=== PATIENT | male | born 1970 | race Caucasian/White ===

== ENCOUNTER 2018-10-01 10:50 | Emergency (ER) | payer OTHER, SELFPAY ==
[2018-10-01 10:53] VITALS: BP 128/69; PULSE 82; RESP 18; TEMP 36.7; O2SAT 97; O2SAT 98
[2018-10-01] MEDS: fentaNYL 100 MCG/2 ML VIAL ×2 (10:57→11:03)
[2018-10-01] MEDS: Omnipaque 350 MG/ML 100 ML BTL IJ (11:12)
[2018-10-01] MEDS: Normal Saline Flush 10 ML SYR IVP (11:14)
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
[2018-10-01] MEDS: MORPHine 10 MG/ML VIAL 4 MG IVP ×2 (11:40→12:20)
[2018-10-01 11:43] VITALS: BP 120/92; PULSE 66; PULSE 71; RESP 17; O2SAT 96
[2018-10-01] MEDS: Normal Saline 1,000 ML 1000 ML IV (11:45)
[2018-10-01 11:46] VITALS: BP 124/75; PULSE 67; PULSE 70; RESP 9; O2SAT 97
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
[2018-10-01 11:57] LABS: Abs Immature Grans 0.03 k/cumm (0.0-0.09); Absolute Basophil Count 0.06 k/cumm (0.0-0.2); Absolute Eosinophil Count 0.15 k/cumm (0.0-0.7); Absolute Lymphocyte Count 1.82 k/cumm (1.2-3.4); Absolute Monocyte Count 0.78 k/cumm (0.11-0.7); Absolute Neutrophil Count 4.41 k/cumm (1.2-6.7); Basophils % 0.8; Eosinophils % 2.1; HCT 41.3 % (40.0-50.0); HGB 14.4 g/dL (13.5-17.5); Immature Grans % 0.4; Lymphocytes % 25.1; Mean Corp. HGB Concentration 34.9 g/dL (32.0-36.0); Mean Corpuscular Hemoglobin 31.2 pg (27.0-33.0); Mean Corpuscular Volume 89.6 fL (80-95); Mean Platelet Volume 9.6 fL (8.0-11.0); Monocytes % 10.8; Neutrophils % 60.8; Platelet Count 254 x1000/uL (130-400); RBC 4.61 m/cumm (4.50-6.00); RBC Distribution Width 13.2 % (11.8-14.1); White Blood Cell Count 7.25 k/cumm (4.4-10.8)
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
[2018-10-01 12:10] VITALS: BP 120/83; PULSE 63; PULSE 70; RESP 23; O2SAT 96
[2018-10-01 12:11] LABS: ALT 21 U/L (12-78); AST 11 U/L (15-37); Albumin 3.3 g/dL (3.4-5.0); Alkaline Phosphatase 65 U/L (46-116); Anion Gap 7.6 mmol/L (3-11); BUN 13 mg/dL (7-18); Bilirubin, Total 0.2 mg/dL (0.2-1.0); CO2 27.4 mmol/L (21.0-32.0); CREATININE 1.12 mg/dL (0.70-1.30); Chloride 103 mmol/L (98-107); Glucose 90 mg/dL (70-100); Lipase 113 U/L (73-393); Sodium 138 mmol/L (136-145); Total Protein 6.1 g/dL (6.4-8.2)
[2018-10-01 12:18] LABS: Calcium 8.7 mg/dL (8.5-10.1)
== END 2018-10-01 12:26 | disposition short-term general hospital (02) ==
PROVIDERS: Emergency Provider Student in an Organized Health Care Education/Training Program
DX: S32.492A Other specified fracture of left acetabulum, initial encounter for closed fracture (principal); S32.19XA Other fracture of sacrum, initial encounter for closed fracture; S32.592A Other specified fracture of left pubis, initial encounter for closed fracture; R91.8 Other nonspecific abnormal finding of lung field; V28.0XXA Motorcycle driver injured in noncollision transport accident in nontraffic accident, initial encounter
CPT/HCPCS: 36415; 74177; 80053; 83690; 86850; 86900; 86901; 90471; 96361; 96374; 96376; 99253; 99285; 70450; 71260; 72125; 85025; 99284; J2270; J3010; J3490

== ENCOUNTER 2019-05-05 17:27 | Emergency (ER) | payer SELFPAY ==
[2019-05-05 17:32] VITALS: BP 116/80; PULSE 90; RESP 16; TEMP 36.7; O2SAT 98
--- NOTE | 2019-05-05 17:45 | ED.GENADUL_ITS ---
Discharge Plan Disposition Patient Disposition: HOME Condition: Improving Discharge Details Chief Complaint: RespSymp Clinical Impression: Acute bronchitis with bronchospasm Primary Care Provider: None,None ED Provider: Abilio Hahn Home Meds and New Rx's Prescriptions: New doxycycline hyclate 100 mg capsule 100 mg PO BID 10 Days Qty: 19 RF: 0 prednisone 20 mg tablet 40 mg PO DAILY 5 Days Qty: 10 RF: 0 No Action Daytime and Nighttime Cold 2-5-10-325 mg Tablets, Sequential PO RF: 0 Robitussin Cough and Cold CF 2.5-5-50 mg/5 mL Liquid PRNRF: 0 Discharge Instructions Instructions: Acute Bronchitis (ED) Additional Instructions: Continue efforts to decrease tobacco use with a short-term goal to cut down to 1/2 pack/day. May use albuterol inhaler, with spacer, as needed during times of illness. Return or see regular doctor if you feel you are needing to use the inhaler greater than every 4 hours. Take antibiotics as prescribed, your next dose will be tomorrow morning. Take prednisone as prescribed, next dose tomorrow. Return for worsening discomfort, difficulty breathing, development persistent high fever, or any other acute concern Medical Decision Making 48-year-old male smoker with 2-1/2 weeks of URI symptoms including cough, congestion, production of sputum. He states that he has had coughing fits that resulted in posttussive emesis. He denies chest pain. He is not had chills or rigors. He arrives with normal vital signs. His exam is notable for diminished breath sounds bilaterally. Discussed with him that I feel he has bronchitis with mild bronchospasm. He declines chest x-ray. We will treat with a burst of steroid, doxycycline to cover atypical microorganisms, as well as an inhaler to be used as needed during times of illness. He continues efforts to decrease smoking. I discussed with him home care as well as follow-up and indications for return to the ER. HPI General Mode of arrival: ambulatory . Date/Time Provider Initiated Documentation: 05/05/19 17:27 . Limitations to Documentation: no limitations . Information obtained by: patient . History of Present Illness 48 year old M presents to the emergency department with the chief complaint of Cough, congestion, posttussive emesis last night, described as moderate, Quality is described as dull and constant, and is localized to the neck and chest. Patient reports no radiation. and it has been intermittent. No relieving factors improve symptom(s), No exacerbating factors reported . Patient notes cough; denies chest pain, diaphoresis, shortness of breath and syncope. Patient did receive the following treatments prior to arrival, other (Mucinex and Robitussin) Related Data Home Medications Medication Instructions Recorded Confirmed [id number]-acetaminophen tab PO 05/05/19 [Daytime and Nighttime Cold] doxycycline hyclate 100 mg PO BID 10 Days #19 cap 05/05/19 [id number] ml PRN 05/05/19 [Robitussin Cough and Cold CF] prednisone 40 mg PO DAILY 5 Days #10 tab 05/05/19 Previous Rx's Medication Instructions Recorded doxycycline hyclate 100 mg PO BID 10 Days #19 cap 05/05/19 prednisone 40 mg PO DAILY 5 Days #10 tab 05/05/19 Allergies Allergy/AdvReac Type Severity Reaction Status Date / Time No Known Allergies Allergy Unverified 10/01/18 11:00 General Stated Complaint: RespSymp ALBERTO: 4 Review of Systems Narrative: Denies chest pain, no known sick contacts. States that he has had some production of sputum. Sick systems reviewed and otherwise negative [facility] Medical History Asthma (Chronic) Social History Smoking/Tobacco Use Status: Current every day Tobacco Type: cigarettes Alcohol Intake: current Alcohol Intake frequency: holidays/special occasions only Drug use: Never Substance use type: does not use Do you feel safe in your relationship?: Yes Exam Narrative Exam Narrative: GEN: awake, alert, oriented 3. Pleasant, well groomed, interactive. HEAD: Normocephalic, atraumatic ENT: Mucous membranes moist, oropharynx erythematous without swelling or exudate, External ear exam unremarkable EYES: PERRL, EOMI NECK: Full ROM, no MAUREEN, no menigismus CHEST/RESP: Nontender, clear to auscultation bilateral but diminished, no wheeze/rhonchi/rales CARDIOVASCULAR: RRR, no murmur, rub liang. 2+ Rad pulse bilateral ABDOMEN: Soft, nontender, no mass. +Bowel sounds EXT: Full ROM, no edema, no rash Neuro: Grossly normal neurologic exam, conversant, interactive. Psych: Speech fluent, thoughts congruent, affect normal Course Vital Signs Vital signs: Vital Signs Temperature 36.7 C 05/05/19 17:32 Pulse 90 05/05/19 17:32 Respiratory Rate 16 05/05/19 17:32 Blood Pressure 116/80 05/05/19 17:32 Pulse Oximetry 98 05/05/19 17:32 Temperature 36.7 C 05/05/19 17:32 Pulse 90 05/05/19 17:32 Respiratory Rate 16 05/05/19 17:32 Respiratory Effort 05/05/19 17:38 Blood Pressure 116/80 05/05/19 17:32 Blood Pressure Position Sitting 05/05/19 17:32 Pulse Oximetry 98 05/05/19 17:32 Oxygen Delivery Method Room Air 05/05/19 17:32 Oxygen Flow Rate 0 05/05/19 17:32
[2019-05-05] MEDS: Doxycycline Hyclate 100 MG CAP PO (17:54)
[2019-05-05] MEDS: Albuterol HFA 8 GM 60 PUFF INH IH (17:54)
[2019-05-05] MEDS: predniSONE 20 MG TAB 60 MG PO (17:54)
== END 2019-05-05 17:54 | disposition home or self-care (01) ==
PROVIDERS: Emergency Provider Emergency Medicine
DX: J20.9 Acute bronchitis, unspecified (principal)
CPT/HCPCS: 99283; J7512

== ENCOUNTER 2022-01-13 13:09 | Emergency (ER) | payer SELFPAY ==
[2022-01-13] VITALS (31 sets, daily range): BP systolic 90–103; BP diastolic 46–65; PULSE 78–98; RESP 14–30; TEMP 37.7–38.7; O2SAT 90–96
[2022-01-13 14:21] LABS: Source Nasal/Nares
--- NOTE | 2022-01-13 14:34 | ED.GENADUL_ITS ---
Discharge Plan Disposition Patient Disposition: STILL A PATIENT Condition: Stable Discharge Details Chief Complaint: GenMedical Clinical Impression: COVID Primary Care Provider: None,None ED Provider: Nic Petersen Home Meds and New Rx's Prescriptions: No Action No Known Home Meds Medical Decision Making 51-year-old gentleman, past sickle history of asthma, smoker, presenting for flulike symptoms over the past 24 hours. Patient was swabbed for COVID in triage and is COVID-positive. He was subsequently placed into room 7. Plan is to obtain IV access, give IV fluid, Toradol, obtain routine screening laboratory values and a chest x-ray. Patient makes it very clear that he will not be admitted to our facility as he needs to get home. I do believe that he is likely a candidate for Paxlovid, no recent labs for comparison, will check renal function before giving the medication. Medical Records Medical records reviewed: Yes I reviewed the patient's medical records. Lab Data Lab results reviewed: Yes I reviewed the patient's lab results. Labs: Laboratory Tests Range/Units 01/13/22 13:30 COVID-19 Source Nasal/Nares SARS-CoV-2 (PCR) (Negative) POSITIVE A* HPI General Mode of arrival: ambulatory . Date/Time Provider Initiated Documentation: 01/13/22 13:33 . Limitations to Documentation: no limitations . Information obtained by: patient . HPI Narrative: This is a 61-year-old gentleman, past sickle history of asthma, smoker, presenting to the ER reporting 24-hour history of cough, fatigue, body aches, subjective fever. He reports that he received a single vaccine for COVID. He has not taken any medication prior to arrival. He denies any vomiting, diarrhea, pain or swelling his extremities. Related Data Home Medications Medication Instructions Recorded Confirmed Unknown [No Known Home Meds] 01/13/22 01/13/22 Allergies Allergy/AdvReac Type Severity Reaction Status Date / Time No Known Allergies Allergy Unverified 01/13/22 13:23 General Stated Complaint: GenMedical ALBERTO: 3 Review of Systems Constitutional Constitutional: Reports chills, Reports fever(s) (Subjective) and Reports headache(s) ENT Ears, Nose, Mouth, and Throat: Reports headache(s), Denies neck pain and Reports sore throat Cardiovascular Cardiovascular: Reports chest pain (when coughing) and Reports dyspnea Respiratory Respiratory: Reports cough and Reports dyspnea Gastrointestinal Gastrointestinal: Denies abdominal pain, Denies diarrhea and Denies vomiting Musculoskeletal Musculoskeletal: Reports myalgias and Denies neck pain Integumentary/Breasts Skin/Breast: Denies rash Neurologic Neurologic: Reports headache(s) PFSH All Active Problems (Updated 01/13/22 @ 15:39 by REKHA Abbasi) COVID (Acute) Closed fracture of left acetabulum (Acute) Medical History (Updated 01/13/22 @ 15:39 by REKHA Abbasi) Asthma Social History Smoking/Tobacco Use Status: Current every day Tobacco Type: cigarettes Smoking risk assessment performed?: Yes Alcohol Intake: current Alcohol Intake frequency: holidays/special occasions only Drug use: Never Substance use type: does not use Do you feel safe at home: Yes Do you feel safe in your relationship?: Yes Exam Const General: cooperative and no acute distress Orientation: alert and awake HENNC Head: normal to inspection, normocephalic and atraumatic Face and sinus: normal facial exam Mouth: moist mucous membranes abnormal (Slightly dry) Eyes Conjunctivae: conjunctivae normal Neck Neck: normal visual inspection, full ROM, no meningeal signs, trachea midline and supple Resp Effort & Inspection: normal respiratory effort, able to speak in complete sentences and cough Quality of cough: dry Auscultation: diminished lung sounds bilaterally in the lower lung stallings Cardio Rate: regular rate Rhythm: regular rhythm GI Palpation: soft and nontender Back/Spine/Pelvis Back: No back tenderness Skin General skin exam: no rashes or lesions noted Neuro General: patient alert, patient awake, moves all extremities and no focal motor deficits Cognition: normal cognition Speech: speech normal Gait: normal gait Sensory Exam: no sensory deficits noted Extrem General: normal to inspection, full ROM, capillary refill normal, no pedal edema and no calf tenderness Psych Appearance: grossly normal Mental Status: mental status grossly normal Course Vital Signs Vital signs: Vital Signs Temperature 38.7 C H 01/13/22 13:19 Pulse 94 H 01/13/22 13:19 Respiratory Rate 18 01/13/22 13:19 Blood Pressure 102/49 L 01/13/22 13:19 Pulse Oximetry 96 01/13/22 13:19 Temperature 38.7 C H 01/13/22 13:19 Temperature Source Temporal Artery Scan 01/13/22 13:19 Pulse 94 H 01/13/22 13:19 Respiratory Rate 18 01/13/22 13:19 Respiratory Effort Non-Labored 01/13/22 13:21 Blood Pressure 102/49 L 01/13/22 13:19 Pulse Oximetry 96 01/13/22 13:19 Oxygen Delivery Method Room Air 01/13/22 13:19 Oxygen Flow Rate 0 01/13/22 13:19 Pain Level 10 01/13/22 13:19 Lab/Test Results Lab/Test Results: Laboratory Tests Range/Units 01/13/22 13:30 COVID-19 Source Nasal/Nares PAWSS Have you Been Recently Intoxicated or Drunk Within the Last 30 days?: No Have you Ever Experienced Previous Episodes of Alcohol Withdrawal?: No Have you ever Experienced Withdrawal Seizures?: No Have you ever Experienced Delirium Tremens(DT)s?: No Have you ever undergone Alcohol Rehabilitation Treatment (i.e, inpt ot outpatient treatment programs)?: No Have you ever Experienced Blackouts?: No Have you ever Combined Alcohol with other Downers within the last 90 days?: No Have you ever Combined Alcohol with any other Substance of Abuse during the last 90 days?: No Positive Blood Alcohol level on Presentation? [PCS.BAL]: No Evidence of Increased Autonomic Activity (i.e. HR>120, tremor, sweating, agitation, nausea)?: No Result: 0
[2022-01-13 14:55] LABS: COVID-19 PCR POSITIVE (Negative)
--- NOTE | 2022-01-13 15:30 | DI.RAD_ITS ---
Exam(s) XR PORTABLE CHEST AP EXAM: XR PORTABLE CHEST AP CLINICAL HISTORY: covid +. TECHNIQUE: 2D digital imaging was performed. COMPARISON: CR CHEST 2 VIEWS PA,LAT from 07/09/2009 FINDINGS: Single AP portable view. Heart size is upper normal. The mediastinum is not widened. Lungs are clear. No infiltrates nor obvious pleural effusions. No evidence of right middle lobe scarring, which is where had a prominent infiltrate in 2010 IMPRESSION: No acute pulmonary findings on this single AP portable view of the chest. DATA REPOSITORY: RADIATION DOSE DELIVERED: All CT scans at this facility use at least one of these dose optimization techniques: automated exposure control; mA and/or kV adjustment per patient size (includes targeted e xams where dose is matched to clinical indication); or iterative reconstruction.
[2022-01-13] MEDS: Normal Saline 1,000 ML 1000 ML IV (15:45)
[2022-01-13] MEDS: Ketorolac 30 MG/ML VIAL IVP (15:46)
[2022-01-13 15:57] LABS: Abs Immature Grans 0.02 10^3/uL (0.0-0.06); Absolute Basophil Count 0.07 10^3/uL (0.0-0.2); Absolute Eosinophil Count 0.03 10^3/uL (0.0-0.7); Absolute Lymphocyte Count 0.31 10^3/uL (1.2-3.4); Absolute Monocyte Count 0.87 10^3/uL (0.1-0.8); Absolute Neutrophil Count 3.91 10^3/uL (1.2-6.7); Basophils % 1.3; Eosinophils % 0.6; HCT 39.3 % (40.0-50.0); Immature Grans % 0.4; MCH 31.3 pg (27.0-33.0); MCHC 35.6 % (32.0-36.0); MCV 88 fL (80-95); MPV 9.6 fL (8.0-11.0); Monocytes % 16.7; Platelet Count 215 10^3/uL (130-400); RBC 4.48 10^6/uL (4.36-5.78); RDW 12.8 % (11.8-14.1); RDW-SD 41.1 fL; WBC 5.21 10^3/uL (4.4-10.8)
[2022-01-13 16:30] LABS: ALT 15 U/L (16-63); AST 14 U/L (15-37); Albumin 3.5 g/dL (3.4-5.0); Alkaline Phosphatase 65 U/L (46-116); Anion Gap 8.2 mmol/L (3-11); BUN 7 mg/dL (7-18); Bilirubin, Total 0.3 mg/dL (0.2-1.0); CO2 26.8 mmol/L (21.0-32.0); CREATININE 1.3 mg/dL (0.70-1.30); Calcium 8.5 mg/dL (8.5-10.1); Chloride 96 mmol/L (98-107); Estimated GFR 58.43 (mL/min/1.73m2); Glucose 111 mg/dL (74-106); Lipase 61 U/L (73-393); Potassium 3.9 mmol/L (3.5-5.1); Sodium 131 mmol/L (136-145); Total Protein 6.7 g/dL (6.4-8.2)
[2022-01-13] MEDS: Acetaminophen 500 MG TAB 1000 MG PO (16:45)
[2022-01-13] MEDS: Lactated Ringers 1,000 ML 1000 ML IV (17:10)
[2022-01-13] MEDS: Dexamethasone 10 MG/ML VIAL (17:20)
--- NOTE | 2022-01-13 18:42 | NUR.NOTE ---
Nursing Note: Referral given to Care Management for needs PCP, establish care, routine follow up.
[2022-01-13] MEDS: Ipratropium/Albuterol 4 GM 120 PUFF INH IH (18:45)
--- NOTE | 2022-01-13 19:38 | W.ED.FU ---
Follow Up Plan: Care was accepted from Nic Petersen pending diagnostic labs and reassessment She remains hypotensive but asymptomatic, he received 2 L of saline Temperature was 100.7 on reassessment, 5 with Tylenol COVID-positive Received contact 11 Labs do not show significant acute abnormality We discussed admission, patient has adamantly declined, he is fully alert, oriented, of decisional capacity and is ambulatory with steady gait He understands that his blood pressure is quite low and I am concerned about him
== END 2022-01-13 18:48 | disposition home or self-care (01) ==
PROVIDERS: Physician Assistant; Emergency Provider Physician Assistant
DX: U07.1 COVID-19 (principal); R03.0 Elevated blood-pressure reading, without diagnosis of hypertension; J45.909 Unspecified asthma, uncomplicated; F17.210 Nicotine dependence, cigarettes, uncomplicated
CPT/HCPCS: 80053; 83690; 87635; 96361; 96374; 96375; 99284; 71045; 85025; J1100; J1885; J3490

== ENCOUNTER 2022-01-16 10:32 | Outpatient (CLI) | payer SELFPAY ==
--- NOTE | 2022-01-16 10:30 | RT.EKG_ITS ---
APPROVED REPORT Exam: Resting ECG Reason for Exam: Low pulse, BP Patient Location: O HR:50 bpm ECG Measurements Heart Rate 50 AXIS MT 156 P -24 QRSd 104 QRS -20 QT 460 T -17 QTc 420 Conclusion Sinus rhythm...normal P axis, V-rate 50- 99 Normal Electrocardiogram Baseline wander in lead(s) V1,V2,V3
== END 2022-01-16 10:33 | disposition home or self-care (01) ==
LOC: DI.CM 10:32
PROVIDERS: Visit Provider Physician Assistant
DX: I95.9 Hypotension, unspecified (principal)
CPT/HCPCS: 93010

== ENCOUNTER 2022-07-22 09:55 | Emergency (ER) | payer SELFPAY ==
[2022-07-22 10:01] VITALS: BP 114/46; PULSE 69; RESP 17; TEMP 36.2; O2SAT 97
--- NOTE | 2022-07-22 10:35 | W.ED.GENAD ---
Discharge Plan Disposition Patient Disposition: Home Condition: Stable Discharge Details Clinical Impression: Respiratory tract infection Primary Care Provider: None,None ED Provider: Jordan Mcneill Home Meds and New Rx's Prescriptions: New benzonatate 200 mg capsule 200 mg PO TID PRN (Reason: cough) Qty: 30 0RF amoxicillin-pot clavulanate 875-125 mg tablet 1 tab PO Q12H 7 Days Qty: 14 0RF prednisone 20 mg tablet 40 mg PO DAILY Qty: 8 0RF albuterol sulfate 90 mcg/actuation HFA aerosol inhaler 2 puff inhalation QID PRN (Reason: shortness of breath or wheezing) Qty: 6.7 0RF Discontinued benzonatate 100 mg capsule 100 mg PO TID PRN (Reason: cough) Qty: 14 0RF Patient Comments: RX finished 07/22/2022 CT ondansetron HCl 4 mg tablet 4 mg PO Q8H PRN (Reason: nausea and vomiting) Qty: 10 0RF Patient Comments: RX finished 07/22/2022 CT sucralfate [Carafate] 1 gram tablet 1 g PO TID Qty: 21 0RF Patient Comments: no longer taking medication 07/22/2022 CT Discharge Instructions Instructions: Acute Bronchitis (ED), Community Acquired Pneumonia (ED) Additional Instructions: It is very important that you get plenty of rest and stay well-hydrated during illness. Please use medication as prescribed and take antibiotic for the full 7 days. If you develop any new or significant worsening of symptoms feel free to return the emergency department for reassessment otherwise follow-up with your primary care provider for recheck of your symptoms. Stand Alone Forms: Work Release Referrals: Primary Care Provider [Outside] - 1 week (If not improving) Discharge Data Discharge Date/Time-TO BE ENTERED AT DEPARTURE: 07/22/22 10:44 Medical Decision Making Patient presenting to the emergency department for chief complaint of worsening cough symptoms. He states he has been ill for the past 2 weeks but over the past couple days has noted significant worsening of cough, chest tightness and has developed some nausea vomiting. Patient states he has been taking DayQuil and NyQuil that initially were helping but no longer helping. Patient denies current fever, chest pain, syncope. Physical exam shows clear lung sounds, no tachycardia, HEENT exam shows no worrisome oropharyngeal findings, patient does have erythema purulent fluid and bulging of left TM. No lymphadenopathy is noted. Rapid COVID flu swab was performed and is negative. Patient does state he has been taking home COVID test which have been negative throughout illness. Patient is not tachycardic and not hypoxic. He is a daily smoker. Differential diagnosis to include bronchitis, secondary viral illness, early pneumonia and early otitis media given that patient denies otalgia. We will plan on treating patient with Augmentin, prednisone, Tessalon Perles, and albuterol inhaler as needed. After discussion of diagnosis and plan of care patient has no further needs, questions, or concerns and states clear understanding to return to the emergency department for any worsening symptoms. This documentation was generated using [employer] dictation system, please disregard any oddities of phrase or misspellings. HPI General Mode of arrival: ambulatory. Date/Time Provider Initiated Documentation: 07/22/22 10:08. Limitations to Documentation: no limitations. Information obtained by: patient and RN notes reviewed. History of Present Illness 52 year old M presents to the emergency department with the chief complaint of Worsening cough and cold symptoms, described as moderate, Quality is described as other (Tightness with coughing), and is localized to the chest. Patient started experiencing this week(s) (2) and it has been constant. No relieving factors improve symptom(s), No exacerbating factors reported . Patient did receive the following treatments prior to arrival, other (DayQuil and NyQuil) Related Data Home Medications Medication Instructions Recorded Confirmed albuterol sulfate 90 mcg/actuation 2 puff inhalation QID PRN 07/22/22 aerosol inhaler shortness of breath or wheezing #6.7 grams amoxicillin 875 mg-potassium 1 tab PO Q12H 7 days #14 tabs 07/22/22 clavulanate 125 mg tablet benzonatate 200 mg capsule 200 mg PO TID PRN cough #30 caps 07/22/22 prednisone 20 mg tablet 40 mg PO DAILY #8 tabs 07/22/22 Previous Rx's Medication Instructions Recorded albuterol sulfate 90 mcg/actuation 2 puff inhalation QID PRN 07/22/22 aerosol inhaler shortness of breath or wheezing #6.7 grams amoxicillin 875 mg-potassium 1 tab PO Q12H 7 days #14 tabs 03/02/23 clavulanate 125 mg tablet benzonatate 200 mg capsule 200 mg PO TID PRN cough #30 caps 07/22/22 prednisone 20 mg tablet 40 mg PO DAILY #8 tabs 07/22/22 Allergies Allergy/AdvReac Type Severity Reaction Status Date / Time No Known Allergies Allergy Unverified 07/22/22 10:05 General Stated Complaint: RespSymp ALBERTO: 4 Review of Systems Constitutional Constitutional: Reports chills, Reports fatigue, Denies headache(s), Reports lethargy, Reports malaise and Reports poor appetite ENT Ears, Nose, Mouth, and Throat: Denies headache(s), Reports nasal congestion and Reports sore throat Cardiovascular Cardiovascular: Denies chest pain and Reports dyspnea on exertion Respiratory Respiratory: Reports cough, Reports pain with cough, Reports dyspnea on exertion and Reports wheezing Gastrointestinal Gastrointestinal: Denies abdominal pain and Reports vomiting Integumentary/Breasts Skin/Breast: Denies rash Neurologic Neurologic: Denies headache(s) Endocrine Endocrine: Reports fatigue Allergic/Immunologic Allergic/Immunologic: Reports wheezing PFSH All Active Problems Respiratory tract infection (Acute) COVID (Acute) Closed fracture of left acetabulum (Acute) Medical History Asthma Social History Smoking/Tobacco Use Status: Current every day Tobacco Type: cigarettes Smoking risk assessment performed?: Yes Alcohol Intake: current Alcohol Intake frequency: holidays/special occasions only Drug use: Never Substance use type: does not use Do you feel safe at home: Yes Do you feel safe in your relationship?: Yes Exam Const General: cooperative, comfortable and no acute distress Orientation: alert and awake [facility] Head: normal to inspection, normocephalic and atraumatic Ears: hearing grossly normal bilaterally, TM normal on the right and TM abnormal bulging on the left, wth effusion purulent on the left, erythematous on the left and with fluid behind the TM on the left General nose exam: external nose normal Face and sinus: no erythema Mouth: oral mucosae normal, no drooling, no muffled voice and no trismus Throat: posterior oropharynx normal Neck Neck: normal visual inspection, full ROM, no lymphadenopathy, no meningeal signs, trachea midline and supple Resp Effort & Inspection: normal respiratory effort, able to speak in complete sentences and cough Quality of cough: dry Auscultation: clear to auscultation bilaterally Cardio Rate: regular rate Rhythm: regular rhythm Heart Sounds: S1 normal, S2 normal, normal S1 and S2, no click, no gallops, no murmurs and no rubs Skin General skin exam: no rashes or lesions noted and dry skin (warm) Neuro General: patient alert, patient awake, patient oriented x3, gait normal and moves all extremities Cognition: normal cognition Speech: speech normal Course Vital Signs Vital signs: Vital Signs Temperature 36.2 C L 07/22/22 10:01 Pulse 69 07/22/22 10:01 Respiratory Rate 17 07/22/22 10:01 Blood Pressure 114/46 L 07/22/22 10:01 Pulse Oximetry 97 07/22/22 10:01 Temperature 36.2 C L 07/22/22 10:01 Temperature Source Tympanic 07/22/22 10:01 Pulse 69 07/22/22 10:01 Respiratory Rate 17 07/22/22 10:01 Respiratory Effort Non-Labored, Short of Breath 07/22/22 10:04 Respiratory Depth Normal 07/22/22 10:04 Blood Pressure 114/46 L 07/22/22 10:01 Blood Pressure Position Sitting 07/22/22 10:01 Pulse Oximetry 97 07/22/22 10:01 Oxygen Delivery Method Room Air 07/22/22 10:01 Oxygen Flow Rate 0 07/22/22 10:01 Pain Level 0 07/22/22 10:01
== END 2022-07-22 10:44 | disposition home or self-care (01) ==
PROVIDERS: Emergency Provider Nurse Practitioner Family
DX: R07.89 Other chest pain; R11.2 Nausea with vomiting, unspecified; J06.9 Acute upper respiratory infection, unspecified
CPT/HCPCS: 87426; 99283

== ENCOUNTER 2023-07-09 06:39 | Emergency (ER) | payer SELFPAY ==
[2023-07-09 06:44] VITALS: BP 149/82; PULSE 93; RESP 18; TEMP 36.7; O2SAT 97
[2023-07-09 06:57] VITALS: BP 149/82; PULSE 93; RESP 18; TEMP 36.7; O2SAT 97
--- NOTE | 2023-07-09 07:01 | ED.GENADUL_ITS ---
HPI General Mode of arrival: ambulatory . Date/Time Provider Initiated Documentation: 07/09/23 06:42 . Limitations to Documentation: no limitations . Information obtained by: patient . History of Present Illness 53 year old M presents to the emergency department with the chief complaint of Cough, described as moderate, Patient started experiencing this day(s) (4) and it has been intermittent. No relieving factors improve symptom(s), No exacerbating factors reported . Patient notes cough, fever/chills and shortness of breath. Related Data Home Medications Medication Instructions Recorded Confirmed amoxicillin 875 mg-potassium 1 tab PO BID #14 tabs 07/09/23 clavulanate 125 mg tablet prednisone 20 mg tablet 60 mg (3 x 20 mg) PO DAILY 4 days 07/09/23 #12 tabs Previous Rx's Medication Instructions Recorded amoxicillin 875 mg-potassium 1 tab PO BID #14 tabs 07/09/23 clavulanate 125 mg tablet prednisone 20 mg tablet 60 mg (3 x 20 mg) PO DAILY 4 days 07/09/23 #12 tabs Allergies Allergy/AdvReac Type Severity Reaction Status Date / Time No Known Allergies Allergy Unverified 07/09/23 06:47 General Stated Complaint: RespSymp ALBERTO: 3 Review of Systems All systems reviewed & are unremarkable except as noted in HPI and below Constitutional Constitutional: Denies fever(s) and Denies weakness Cardiovascular Cardiovascular: Reports dyspnea Respiratory Respiratory: Reports cough and Reports dyspnea Gastrointestinal Gastrointestinal: Denies abdominal pain, Denies nausea and Denies vomiting Genitourinary Genitourinary: Denies dysuria Musculoskeletal Musculoskeletal: Denies joint swelling Integumentary/Breasts Skin/Breast: Denies rash Neurologic Neurologic: Denies weakness Exam Const General: no acute distress Orientation: alert [facility] Head: normal to inspection Ears: external ears normal General nose exam: external nose normal Mouth: moist mucous membranes Eyes General: appearance normal, both eyes and all related structures Neck Neck: normal visual inspection Resp Effort & Inspection: normal respiratory effort and able to speak in complete sentences Auscultation: clear to auscultation bilaterally Cardio Jugular venous pressure: no JVD Rate: regular rate Heart Sounds: no murmurs Skin General skin exam: no rashes or lesions noted Neuro General: patient alert and patient oriented x3 Extrem General: normal to inspection and capillary refill normal Psych Mental Status: mental status grossly normal Course Vital Signs Vital signs: Vital Signs Temperature 36.7 C 07/09/23 06:44 Pulse 93 H 07/09/23 06:44 Respiratory Rate 18 07/09/23 06:44 Blood Pressure 149/82 H 07/09/23 06:44 Pulse Oximetry 97 07/09/23 06:44 Temperature 36.7 C 07/09/23 06:57 Temperature Source Skin 07/09/23 06:57 Pulse 93 H 07/09/23 06:57 Respiratory Rate 18 07/09/23 06:57 Respiratory Effort Normal 07/09/23 06:56 Respiratory Depth Normal 07/09/23 06:56 Blood Pressure 149/82 H 07/09/23 06:57 Blood Pressure Position Sitting 07/09/23 06:57 Pulse Oximetry 97 07/09/23 06:57 Oxygen Delivery Method Room Air 07/09/23 06:57 Oxygen Flow Rate 0 07/09/23 06:57 Pain Level 0 07/09/23 06:57 Medical Decision Making 53-year-old male with a history of chronic smoking, denies any chronic medical problems, who comes in with 3 to 4 days of bodyaches, dry cough, nasal congestion, and shortness of breath. He also notes chills, does not believe he had a fever. He states when he coughs he has some anterior chest discomfort but has no chest pain otherwise. He is alert and oriented x 4 on arrival speaking in full sentences in no respiratory distress. He does have intermittent dry cough during exam. He has no meningismus, clear speech, does have apical wheezing bilaterally, with rhonchi at the bases. No lower leg swelling, no calf tenderness, no JVD. History and exam are consistent with an upper respiratory infection, likely has a component of COPD with his chronic smoking. Will obtain Fluvid, chest x-ray, and treat with a dose of dexamethasone and DuoNeb and reassess. Do not feel workup with entities such as ACS, PE, dissection indicated at this time given his symptoms are consistent with infectious etiology. Patient states he feels much better after nebulizer, room air saturation 97% and speaking in full sentences. X-ray on my read is negative, Fluvid is negative. I suspect he has underlying COPD with his chronic smoking, given the increased cough will start him on antibiotics. He is stable for discharge, advised to follow-up with either [facility] care or his primary care within a week if not better, return precautions given. I also did advise that he should probably should ask his primary care provider to have pulmonary function test at some point in the future Differential Diagnosis Differential Diagnosis: Pneumonia, COVID, flu Imaging Data Radiologic Study: Attestation: I personally reviewed and interpreted this imaging study as follows: Imaging: X-Ray My impression: No acute findings Lab Data Lab results reviewed: Yes I reviewed the patient's lab results. Quality:SDOH Health Related Social Needs: No Data to Display PFSH All Active Problems (Updated 07/09/23 @ 07:59 by Jamal Mejia MD) Acute upper respiratory infection (Acute) COVID (Acute) Closed fracture of left acetabulum (Acute) Medical History (Updated 07/09/23 @ 07:59 by Jamal Mejia MD) Asthma Social History Smoking/Tobacco Use Status: Current every day Tobacco Type: cigarettes Smoking risk assessment performed?: Yes Alcohol Intake: current Alcohol Intake frequency: holidays/special occasions only Drug use: Never Substance use type: does not use Do you feel safe at home: Yes Do you feel safe in your relationship?: Yes Discharge Plan Disposition Patient Disposition: Home Condition: Stable Discharge Details Clinical Impression: Acute upper respiratory infection ED Provider: Jamal Mejia Home Meds and New Rx's Prescriptions: New prednisone 20 mg tablet 60 mg PO DAILY 4 Days Qty: 12 0RF amoxicillin-pot clavulanate 875-125 mg tablet 1 tab PO BID Qty: 14 0RF Discharge Instructions Instructions: Upper Respiratory Infection (ED) Additional Instructions: Start taking the antibiotic today, and start taking the prednisone tomorrow You can take 1 to 2 puffs every 2-4 hours as needed of the albuterol inhaler If not better within a week follow-up with either your primary care or express care If you feel more ill, have worsening shortness of breath or new symptoms such as high fevers return to the emergency department for reevaluation
[2023-07-09 07:08] VITALS: RESP 3; RESP 9
[2023-07-09] MEDS: Albuterol/Ipratropium 3 ML UPD VIAL UPD (07:08)
[2023-07-09] MEDS: Dexamethasone 4 MG TAB 10 MG PO (07:08)
--- NOTE | 2023-07-09 07:33 | DI.RAD_ITS ---
Exam(s) XR CHEST 2V PA LATERAL EXAM: XR CHEST 2V PA LATERAL CLINICAL HISTORY: cough TECHNIQUE: 2D digital imaging was performed of the chest. Two images were obtained. PA and lateral views were obtained. COMPARISON: CR XR PORTABLE CHEST AP from 01/13/2022 FINDINGS: MEDIASTINUM: Normal. HEART: Normal. PULMONARY VASCULATURE: Normal. LUNGS: Clear. PLEURAL SPACE: No pleural effusion or pneumothorax. BONE:Within normal limits for the patient's age. OTHER FINDINGS:Normal. IMPRESSION: No acute pulmonary findings. DATA REPOSITORY: RADIATION DOSE DELIVERED:
[2023-07-09 07:39] LABS: COVID-19 PCR Negative (Negative); Influenza A PCR Negative (Negative); Influenza B PCR Negative (Negative); RSV PCR Negative (Negative)
[2023-07-09 07:44] LABS: Source Nasopharynx
[2023-07-09] MEDS: Albuterol HFA 8 GM 60 PUFF INH IH (08:05)
[2023-07-09] MEDS: Inhaler, Assist Device 1 EACH MC (08:05)
--- NOTE | 2023-07-09 08:14 | DI.VRAD_ITS ---
PROCEDURE INFORMATION: Exam: XR Chest Exam date and time: 07/09/2023 7:28 AM Age: 53 years old Clinical indication: Patient HX: Cough, flu symptoms TECHNIQUE: Imaging protocol: Radiologic exam of the chest. Views: 2 views. COMPARISON: CR XR PORTABLE CHEST AP 01/13/2022 4:24 PM FINDINGS: Lungs: No focal consolidation seen. Pleural spaces: No large pleural effusion seen. Heart/Mediastinum: No cardiomegaly. Bones/joints: Grossly unremarkable. IMPRESSION: No acute findings to explain reported symptoms. Dictated and Authenticated by: Zahra Stearns MD. Ordering:DEBBI Berry MD
== END 2023-07-09 08:09 | disposition home or self-care (01) ==
PROVIDERS: Emergency Provider Emergency Medicine
DX: J06.9 Acute upper respiratory infection, unspecified (principal); J44.9 Chronic obstructive pulmonary disease, unspecified; F17.210 Nicotine dependence, cigarettes, uncomplicated; Z11.52 Encounter for screening for COVID-19
CPT/HCPCS: 87637; 94640; 99284; 71046; J7620; J8540

== ENCOUNTER 2023-09-26 11:57 | Emergency (ER) | payer SELFPAY ==
[2023-09-26 12:06] VITALS: BP 118/70; PULSE 78; RESP 18; TEMP 37.4; O2SAT 95
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
[2023-09-26] MEDS: ACETAMINOPHEN 1,000 MG/100 ML BTL 400 MG IVPB (13:39)
[2023-09-26 13:40] LABS: Abs Immature Grans 0.01 10^3/uL (0.0-0.06); Absolute Basophil Count 0.08 10^3/uL (0.0-0.2); Absolute Eosinophil Count 0.23 10^3/uL (0.0-0.7); Absolute Lymphocyte Count 1.73 10^3/uL (1.2-3.4); Absolute Monocyte Count 0.63 10^3/uL (0.1-0.8); Absolute Neutrophil Count 4.47 10^3/uL (1.2-6.7); Basophils % 1.1 %; Eosinophils % 3.2 %; HCT 43.5 % (40.0-50.0); HGB 14.6 g/dL (13.5-17.5); Immature Grans % 0.1 %; Lymphocytes % 24.2 %; MCH 30.6 pg (27.0-33.0); MCHC 33.6 % (32.0-36.0); MCV 91 fL (80-95); MPV 9.4 fL (8.0-11.0); Monocytes % 8.8 %; Neutrophils % 62.6 %; Platelet Count 261 10^3/uL (130-400); RBC 4.77 10^6/uL (4.36-5.78); RDW 12.9 % (11.8-14.1); RDW-SD 43.4 fL; WBC 7.15 10^3/uL (4.4-10.8)
[2023-09-26 13:56] LABS: ALT 21 U/L (16-63); AST 13 U/L (15-37); Albumin 3.7 g/dL (3.4-5.0); Alkaline Phosphatase 65 U/L (46-116); Anion Gap 8.4 mmol/L (3-11); BUN 9 mg/dL (7-18); Bilirubin, Total 0.5 mg/dL (0.2-1.0); CO2 28.6 mmol/L (21.0-32.0); CREATININE 1.3 mg/dL (0.70-1.30); Calcium 8.8 mg/dL (8.5-10.1); Chloride 105 mmol/L (98-107); Glucose 95 mg/dL (74-106); Potassium 4.3 mmol/L (3.5-5.1); Sodium 142 mmol/L (136-145); Total Protein 6.9 g/dL (6.4-8.2)
[2023-09-26] MEDS: Omnipaque 350 MG/ML 100 ML BTL IJ (14:17)
[2023-09-26] MEDS: Normal Saline - Diluent 50 ML VIAL IV (14:18)
[2023-09-26 15:17] VITALS: BP 123/72; PULSE 68; RESP 18; TEMP 37.2; O2SAT 99
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
== END 2023-09-26 15:24 | disposition home or self-care (01) ==
PROVIDERS: Emergency Provider Student in an Organized Health Care Education/Training Program
DX: S22.030A Wedge compression fracture of third thoracic vertebra, initial encounter for closed fracture (principal); S20.211A Contusion of right front wall of thorax, initial encounter; V86.55XA Driver of 3- or 4- wheeled all-terrain vehicle (ATV) injured in nontraffic accident, initial encounter; R07.89 Other chest pain
CPT/HCPCS: 80053; 86850; 86900; 86901; 96374; 99285; 70450; 71260; 72125; 74160; 85025; 99283; J0131; J3490

== ENCOUNTER 2024-12-30 09:36 | Emergency (ER) | payer SELFPAY ==
--- NOTE | 2024-12-30 09:30 | RT.EKG_ITS ---
APPROVED REPORT Exam: Resting ECG Reason for Exam: dizzyness Patient Location: E HR:62 bpm ECG Measurements Heart Rate 62 AXIS CA 159 P 82 QRSd 106 QRS 76 QT 405 T 69 QTc 411 Conclusion Sinus rhythm...normal P axis, V-rate 60- 99
[2024-12-30 09:39] VITALS: BP 131/82; PULSE 61; RESP 16; TEMP 36.8; O2SAT 94
== END 2024-12-30 10:27 | disposition left against medical advice (07) ==
DX: Z53.21 Procedure and treatment not carried out due to patient leaving prior to being seen by health care provider (principal)
CPT/HCPCS: 93005; 93010